=== PATIENT | female | born 1970 | race Caucasian/White ===

== ENCOUNTER → 2018-12-10 | Outpatient (CLI) | payer OTHER ==
--- NOTE | 2018-12-10 10:59 | RADIOLOGY IMAGING REPORT ---
[place] [facility] [place]: Tatum Angel : 1970 MR: [id number] V: [id number] EXAM DATE: ORDERING PHYSICIAN: TAMIR BUSTILLO TECHNOLOGIST: Location: [facility] Patient: Tatum Angel : 1970 Visit/Account:[id number] Date of Sevice: 12/10/2018 Technique: FOREARM LEFT HISTORY: Forearm injury Comparison studies: None FINDINGS: There is no acute fracture. The alignment of the left forearm is preserved. Soft tissues are unremarkable. IMPRESSION: 1. No acute osseous process. Report Dictated By: Jd Coronado DO at 12/10/2018 10:54 AM Report E-Signed By: Jd Coronado DO at 12/10/2018 10:55 AM WSN:[id number]
== END ==
LOC: RAD 09:50
PROVIDERS: ATTEND Nurse Practitioner Psychiatric/Mental Health
DX: S59.912A Unspecified injury of left forearm, initial encounter (principal)